=== PATIENT | female | born 1990 | race Caucasian/White ===

== ENCOUNTER 2018-06-23 14:24 | Day surgery (SDC) | payer SELFPAY ==
[2018-06-23 15:05] VITALS: BMI 33.1
== END 2018-06-23 15:19 | disposition home or self-care (01) ==
LOC: L&D/OP 14:24
PROVIDERS: ATTEND Obstetrics & Gynecology
DX: Z01.89 Encounter for other specified special examinations (principal); Z79.899 Other long term (current) drug therapy
CPT/HCPCS: 76815; 99281

== ENCOUNTER 2018-07-28 05:30 | Inpatient (IN) | payer BC, OTHER ==
--- NOTE | 2018-07-27 18:56 | PDOC.LDHP ---
Labor and Delivery H&P Chief complaint: scheduled induction HPI: Pt is a 28yo @ 39.1 weeks scheduled for elective IOL. Current gestational age (weeks): 39 Due date: 08/03/18 Dating criteria: last menstrual period, first trimester ultrasound Grav: 4 Para: 2 OB History Details: x 2, D and C @ 15 weeks Current complications: none Abnormal US findings: No Current medications: pre-don vitamins Previous surgical history: dilation and curettage Allergies/Adverse Reactions: Allergies Allergy/AdvReac Type Severity Reaction Status Date / Time No Known Allergies Allergy Verified 07/28/18 08:04 Social history: none - Physical Exam Vital signs reviewed and normal: yes General: resting Lungs: CTAB Abdomen: gravid Extremeties: no edema FHT: category 1 - Vaginal Exam cm dilated: 3 (AROM on admit exam clear fluid) Effacement: 50% Station: -1 - OB Labs Blood type: O RH: positive Antibody Screen: negative HIV: negative RPR: negative HEPSAg: negative 1 hour GCT: positive GBS: negative Rubella: immune - Assessment L&D Assessment: elective induction at term - Plan Plan: admit to L&D, labor augmentation if indicated, informed consent obtained, anesthesia consult for pain management -: A/P: 28yo @ 39+ weeks, desires elective IOL with a favorable cervix. Plan for AROM and pitocin.
[2018-07-28] MEDS ORDERED: Ondansetron PF 4 MG/2 ML Vial IVP PRN ×3 (06:59→13:11)
[2018-07-28] MEDS ORDERED: NS / Oxytocin 40 units/1000ml 1,000 ML IV PRN (06:59)
[2018-07-28] MEDS ORDERED: HYDROcodone/Acetaminophen 5/325 mg Tablet PO PRN ×4 (06:59→13:11)
[2018-07-28] MEDS ORDERED: Lidocaine 1% (PF) 30 ML VIAL SC PRN (06:59)
[2018-07-28] MEDS ORDERED: Promethazine HCl 25 MG/ML VIAL IM PRN ×2 (06:59→09:12)
[2018-07-28] MEDS ORDERED: Butorphanol Tartrate 1 MG/ML VIAL SLOW IVP PRN (06:59)
[2018-07-28] MEDS ORDERED: NS w/ Oxytocin 10 units 500 ML IV SCH ×2 (06:59)
[2018-07-28] MEDS ORDERED: Ibuprofen 800 MG TAB PO PRN (06:59)
[2018-07-28] MEDS ORDERED: Meperidine HCl/PF 25 MG/ML VIAL IM/IV PRN (06:59)
[2018-07-28] MEDS: Lactated Ringer's 1,000 ML IV SCH ×2 (07:13→11:03)
[2018-07-28 07:37] LABS: Hemoglobin 13.5 g/dL (12.0-16.0); Mean Corpuscular HGB CONC 35.9 g/dL (32.0-36.0); Mean Platelet Volume 7.5 fL (7.4-10.4); Platelet Count 307 thou/uL (130-400); RBC Distribution Width 11.8 % (11.5-14.5); Red Blood Cell (RBC) Count 4.21 mill/uL (4.20-5.40); White Blood Cell (WBC) Count 11.3 thou/uL (4.8-10.8)
[2018-07-28 08:03] VITALS: BMI 32.1
[2018-07-28 08:17] LABS: HBSAg Index 0.15 S/CO (0-0.99); Hep B Surf Ag Non-Reactive S/CO (NonReactive); Syphilis Antibody Nonreactive (Nonreactive); Syphilis Antibody Index 0.03 S/CO (<1.00 Non-Reactive)
[2018-07-28] MEDS ORDERED: Fentanyl 4 mcg/Bup 0.1% Cadd 100 ML ONE (08:42)
[2018-07-28] MEDS ORDERED: ePHEDrine/0.9% NaCl/PF SYRINGE 50 mg/10 ml SLOW IVP PRN (09:12)
[2018-07-28] MEDS ORDERED: Lactated Ringer's 500 ML IV PRN (09:12)
[2018-07-28] MEDS ORDERED: diphenhydrAMINE 50 MG/ML VIAL IVP PRN (09:12)
[2018-07-28] MEDS ORDERED: Eucerin (Mineral Oil/Petrolatum,White) 30 gm Jar TOP PRN (09:12)
[2018-07-28] MEDS ORDERED: Naloxone HCl 0.4 mg/ml Vial IVP PRN ×2 (09:12)
[2018-07-28] MEDS ORDERED: Acetaminophen 325 MG TAB PO PRN (09:12)
[2018-07-28] MEDS ORDERED: Fentanyl 4 mcg/Bupivacaine 0.1% Cassette 100 ML EPIDURAL SCH (09:15)
[2018-07-28] MEDS ORDERED: Communication Order-Pharmacy FS SCH (09:15)
[2018-07-28] MEDS ORDERED: Lidocaine 1.5%/Epinephrine 1:200,000 5 ML AMPUL IJ ONE ×2 (09:42)
[2018-07-28] MEDS ORDERED: Bupivacaine/Epinephrine 0.25% 30 ML VIAL ONE (11:11)
--- NOTE | 2018-07-28 12:42 | PDOC.OPDEL ---
OB Operative/Delivery Note Delivery Dr/Surgeon: Solitario Pre-Delivery Diagnosis: elective induction Procedure/Post Delivery Dx: spontaneous vaginal delivery Weeks gestation: 39 Anesthesia: epidural - Findings A Sex: male - 1 min: 8 - 5 min: 9 - Additional Findings/Plan Placenta delivered: spontaneous Estimated blood loss: 400ml QBL pending Post delivery plan: routine recovery
[2018-07-28] MEDS ORDERED: Benzocaine/Menthol 20-0.5% 60 ML CAN TOP PRN (13:11)
[2018-07-28] MEDS ORDERED: Adacel (T-DAP) 0.5 ML SYRINGE IM ONE (13:11)
[2018-07-28] MEDS ORDERED: Preparation H Ointment 28 GM TUBE PR PRN (13:11)
[2018-07-28] MEDS ORDERED: Milk Of Magnesia 30 ML UDCUP PO PRN (13:11)
[2018-07-28] MEDS ORDERED: Bisacodyl 10 MG SUPP PR PRN (13:11)
[2018-07-28] MEDS ORDERED: Lanolin Ointment 7 GM TUBE TOP PRN (13:11)
[2018-07-28] MEDS ORDERED: diphenhydrAMINE 25 MG CAP PO PRN (13:11)
[2018-07-28] MEDS ORDERED: NS / Oxytocin 40 units/1000ml 1,000 ML IV SCH (13:11)
[2018-07-28] MEDS: Ferrous Sulfate 325 MG TAB PO SCH (16:05)
[2018-07-28] MEDS: Ibuprofen 800 MG TAB PO SCH (16:16)
[2018-07-29] MEDS: Ibuprofen 800 MG TAB PO SCH ×3 (00:43→14:39)
[2018-07-29] MEDS: Docusate Calcium (SURFAK) 240 MG CAP PO SCH ×2 (00:45→08:31)
--- NOTE | 2018-07-29 08:09 | PDOC.PP ---
Post Progress Note Post Day #: 1 Subjective: cramping with nursing, min lochia PO intake tolerated: yes Flatus: yes Ambulation: yes Vital Signs (12 hours) Temp Pulse Resp BP Pulse Ox 07/29/18 07:57 98.6 F 98 20 122/75 98 07/29/18 04:00 98.3 F 70 17 115/56 L Weight Weight 193 lb - Physical Examination General: NAD Respiratory: non-labored breathing Abdominal: no distention Fundus firm & at: below umb Extremities: negative homans (B) Skin: no rash Neurological: no gross focal deficits Psychiatric: A&Ox3, normal affect Result Diagrams: 07/28/18 07:19 Additional Labs: Post Labs Blood Type O POSITIVE 07/28/18 07:19 Hep Bs Antigen Non-Reactive S/CO (NonReactive) 07/28/18 07:19 (1) 39 weeks gestation of Code(s): Z3A.39 - 39 WEEKS GESTATION OF Status: Acute (2) Vaginal delivery Code(s): O80 - ENCOUNTER FOR FULL-TERM UNCOMPLICATED DELIVERY Status: Acute - Assessment/Plan PPD1 doing well, considering DC today vs tomorrow. Will DC if desired and baby DC today.
[2018-07-29] MEDS: Ferrous Sulfate 325 MG TAB PO SCH ×2 (08:32→17:35)
[2018-07-29] MEDS ORDERED: Prenatal Vitamin 1 TAB PO SCH (09:00)
[2018-07-29 11:24] VITALS: BP 109/59; TEMP 98.4
== END 2018-07-29 18:30 | disposition home or self-care (01) | DRG 807 ==
LOC: L&D 06:39 → 3SW 15:35
PROVIDERS: ADMIT Obstetrics & Gynecology; ATTEND Obstetrics & Gynecology
PROC: 10E0XZZ Delivery of Products of Conception, External Approach (ICD-10-PCS; principal; 2018-07-28)
PROC: 3E033VJ Introduction of Other Hormone into Peripheral Vein, Percutaneous Approach (ICD-10-PCS; 2018-07-28)
DX: O80 Encounter for full-term uncomplicated delivery (principal); Z37.0 Single live birth; Z3A.39 39 weeks gestation of pregnancy
CPT/HCPCS: 51702; 85027; 86780; 86850; 86900; 86901; 87340; 90715; J2001; J2405; J3490